=== PATIENT | male | born 1955 | race Hispanic/Latino ===

== ENCOUNTER 2019-04-15 23:31 | Observation (INO) | payer MEDICARE ==
--- NOTE | 2019-04-16 00:03 | Emergency Department Report ---
ED Neuro Deficit HPI - General Chief Complaint: Weakness Stated Complaint: POSS CVA Time Seen by Provider: 04/15/19 23:32 - History of Present Illness Initial Comments: [facility] Date of Service: 04/15/2019 23:28:07 Impression: Dysarthria, L side numbness Comments: 64 yo with subjective L side numbness/weakness with no deficits on exam other than a mild dysarthria. NIHSS 1. Based on an estimated onset per patient of 1900, he presents outside tPA treatment window, so no tPA. No LVO symptoms to suggest a need for FELICIA work-up. Admission to determine if new ischemic event v reactivation of previous stroke symptoms. Metrics: Last Known Well: 04/15/2019 19:00:00 [facility] Notification Time: 04/15/2019 23:27:40 Arrival Time: 04/15/2019 23:31:00 Stamp Time: 04/15/2019 23:28:07 Time First Login Attempt: 04/15/2019 23:30:27 Video Start Time: 04/15/2019 23:30:27 Symptoms: L side symptoms NIHSS Start Assessment Time: 04/15/2019 23:50:56 Patient is not a candidate for tPA. Patient was not deemed candidate for tPA thrombolytics because of Last Well Known Above 4.5 Hours. Video End Time: 04/15/2019 23:56:01 CT head showed no acute hemorrhage or acute core infarct. CT head was reviewed. Advanced imaging was not obtained as the presentation was not suggestive of Large Vessel Occlusive Disease. Radiologist was not called back for review of advanced imaging because n/a ER Physician notified of the decision on thrombolytics management on 04/15/2019 23:58:28 Our recommendations are outlined below. Recommendations: Activate Stroke Protocol Admission/Order Set Stroke/Telemetry Floor Neuro Checks Bedside Swallow Eval DVT Prophylaxis IV Fluids, Normal Saline Head of Bed Below 30 Degrees Euglycemia and Avoid Hyperthermia (PRN Acetaminophen) Initiate Aspirin 325 MG Daily Recommended Scan: MRI Head Without Contrast Lipid Panel to Be Obtained, if Not Done in the Last Three Months Therapies: Physical Therapy, Occupational Therapy, Speech Therapy Assessment When Applicable Dysphaghia Screen: Swallow Evaluation, Bedside DVT prophylaxis: Choice of Primary Team Disposition: Sign Out Sign Out: Discussed with Emergency Department Provider History of Present Illness: Patient is a 64 year old Male. Patient was brought by EMS for symptoms of L side symptoms 64 yo who is a limited historian, with past history of stroke and residual mild L side symptoms. He states sometime this evening, L side felt 'full', different than baseline. When asked about timing, he is uncertain but possibly noted at 1900. When asked about use of blood thinners, he states he takes some medications but is not sure what they are. EMS called and to ER for further evaluation. CT head showed no acute hemorrhage or acute core infarct. CT head was reviewed. Examination: 1A: Level of Consciousness - Alert; keenly responsive + 0 1B: Ask Month and Age - Both Questions Right + 0 1C: Blink Eyes & Squeeze Hands - Performs Both Tasks + 0 2: Test Horizontal Extraocular Movements - Normal + 0 3: Test Visual Short - No Visual Loss + 0 4: Test Facial Palsy (Use Grimace if Obtunded) - Normal symmetry + 0 5A: Test Left Arm Motor Drift - No Drift for 10 Seconds + 0 5B: Test Right Arm Motor Drift - No Drift for 10 Seconds + 0 6A: Test Left Leg Motor Drift - No Drift for 5 Seconds + 0 6B: Test Right Leg Motor Drift - No Drift for 5 Seconds + 0 7: Test Limb Ataxia (FNF/Heel-Marques) - No Ataxia + 0 8: Test Sensation - Normal; No sensory loss + 0 9: Test Language/Aphasia - Normal; No aphasia + 0 10: Test Dysarthria - Mild-Moderate Dysarthria: Slurring but can be understood + 1 11: Test Extinction/Inattention - No abnormality + 0 NIHSS Score: 1 Patient was informed the Neurology Consult would happen via TeleHealth consult by way of interactive audio and video telecommunications and consented to receiving care in this manner. Due to the immediate potential for life-threatening deterioration due to underlying acute neurologic illness, I spent 35 minutes providing critical care. This time includes time for face to face visit via telemedicine, review of medical records, imaging studies and discussion of findings with providers, the patient and/or family. Dr Yayo Montero [facility] - Related Data Home Medications: Home Medications Medication Instructions Recorded Confirmed Last Taken Acetaminophen 500 mg PO QID 05/12/15 05/12/15 Unknown Aspirin 325 mg PO DAILY 05/12/15 05/12/15 Unknown Bactrim DS TAB 1 tab PO 3XW 05/12/15 05/12/15 Unknown Gabapentin 100 mg PO BID 05/12/15 05/12/15 Unknown Lisinopril 40 mg PO DAILY 05/12/15 05/12/15 Unknown glipiZIDE 10 mg PO BID 05/12/15 05/12/15 Unknown traZODone 50 mg PO HS 05/12/15 05/12/15 Unknown Allergies/Adverse Reactions: Allergies Allergy/AdvReac Type Severity Reaction Status Date / Time No Known Allergies Allergy Unverified 05/12/15 11:21 ED Review of Systems ROS: Stated complaint: POSS CVA Other details as noted in HPI ED Past Medical Hx - Past Medical History Hx Hypertension: Yes Hx Diabetes: Yes Hx HIV: Yes Additional medical history: neuropathy - Social History Smoking Status: Never Smoker Substance Use Type: None - Medications Home Medications: Home Medications Medication Instructions Recorded Confirmed Last Taken Type Acetaminophen 500 mg PO QID 05/12/15 05/12/15 Unknown History Aspirin 325 mg PO DAILY 05/12/15 05/12/15 Unknown History Bactrim DS TAB 1 tab PO 3XW 05/12/15 05/12/15 Unknown History Gabapentin 100 mg PO BID 05/12/15 05/12/15 Unknown History Lisinopril 40 mg PO DAILY 05/12/15 05/12/15 Unknown History glipiZIDE 10 mg PO BID 05/12/15 05/12/15 Unknown History traZODone 50 mg PO HS 05/12/15 05/12/15 Unknown History ED Neuro Physical Exam - General Limitations: No Limitations Suspected Stroke: Yes - NIHSS Assessment Interval: Baseline 1a. Level of Consciousness: alert/keenly responsive 1b. LOC Questions: answers both correctly 1c. LOC Commands: performs tasks correctly 2. Best Gaze: normal 3. Visual: no visual loss 4. Facial Palsy: normal symmetrical movement 5b. Motor Arm Right: no drift 5a. Motor Arm Left: no drift 6a. Motor Leg Left: no drift 6b. Motor Leg Right: no drift 7. Limb Ataxia: absent 8. Sensory: normal 9. Best Language: no aphasia 10. Dysarthria: mild/moderate dysarthria 11. Extinction/Inattention: no abnormality Total Score: 1 Stroke Severity: Minor Stroke Critical care attestation.: If time is entered above; I have spent that time in minutes in the direct care of this critically ill patient, excluding procedure time. ED Disposition Clinical Impression: Dysarthria Disposition: OP ADMIT IP TO THIS HOSP Is pt being admited?: Yes Does the pt Need Aspirin: Yes Condition: Stable
--- NOTE | 2019-04-16 00:08 | Emergency Department Report ---
HPI - General Time Seen by Provider: 04/15/19 23:32 - HPI HPI: 64-year-old male presents to the emergency department via EMS from what appears to be a care home house with complaint of possible stroke. A code stroke was initiated. The patient apparently became weak and fell down about one hour prior to presentation. While he is a poor historian, he complains of some increased weakness to his left side, and a feeling of fullness or heaviness to the left side of his face. The patient does have a history of CVA 2 with residual left-sided deficits. He also has a past medical history of diabetes, hypertension, HIV. He was not given anything for her symptoms prior to arrival. ED Past Medical Hx - Past Medical History Hx Hypertension: Yes Hx Diabetes: Yes Hx HIV: Yes Additional medical history: neuropathy - Social History Smoking Status: Never Smoker Substance Use Type: None - Medications Home Medications: Home Medications Medication Instructions Recorded Confirmed Last Taken Type glipiZIDE 10 mg PO BID 05/12/15 04/16/19 Unknown History Aspirin [Aspirin BABY CHEW TAB] 81 mg PO QDAY 04/16/19 04/16/19 Unknown History Dolutegravir [Tivicay] 50 mg PO DAILY 04/16/19 04/16/19 Unknown History Ergocalciferol [Vitamin D2] 1 cap PO QWEEK 04/16/19 04/16/19 04/15/19 History ED Review of Systems ROS: Stated complaint: POSS CVA Other details as noted in HPI Comment: All other systems reviewed and negative Constitutional: weakness. denies: fever Eyes: denies: eye pain, vision change Respiratory: denies: shortness of breath Cardiovascular: denies: chest pain Gastrointestinal: denies: abdominal pain, vomiting Musculoskeletal: denies: back pain Neurological: weakness. denies: headache Physical Exam - Physical Exam Physical Exam: GENERAL: The patient is well-developed well-nourished. HENT: Normocephalic. Atraumatic. Patient has moist mucous membranes. EYES: Extraocular motions are intact. Pupils equal reactive to light bilaterally. NECK: Supple. Trachea is midline. CHEST/LUNGS: Clear to auscultation. There is no respiratory distress noted. HEART/CARDIOVASCULAR: Regular. There is no tachycardia. There is no murmur. ABDOMEN: Abdomen is soft, nontender. Patient has normal bowel sounds. There is no abdominal distention. SKIN: Skin is warm and dry. NEURO: The patient is awake, alert and cooperative. The patient has no objective motor or sensory deficits. Mild dysarthria. CN II - XII grossly intact. MUSCULOSKELETAL: There is no tenderness or deformity. There is no limitation range of motion. There is no evidence of acute injury. ED Medical Decision Making - Lab Data Result diagrams: 04/16/19 00:00 04/16/19 00:00 - EKG Data -: EKG Interpreted by Me EKG shows normal: sinus rhythm, axis, intervals, QRS complexes, ST-T waves Rate: normal - EKG Data When compared to previous EKG there are: previous EKG unavailable Interpretation: normal EKG - Medical Decision Making This patient presented as a code stroke secondary to some subjective left-sided weakness and numbness. The patient was seen by the telemedicine neurologist immediately after completing his CT scan of the head. CT scan of the head did not show any bleed, shift, mass, acute ischemia. The patient was found to have a NIH stroke scale of 1 secondary to the dysarthria. There was no obvious last known well time and the patient does not appear to be a TPA candidate. It also does not appear to be a large vessel occlusion and therefore CT angiography was not recommended. However neurology recommends admission and MRI and further stroke workup. The patient was given aspirin. He will be admitted to [facility] for further evaluation and treatment and was accepted for admission by the hospitalist Dr Staples. - Differential Diagnosis CVA, TIA, Hypoglycemia, Dysarthria. Critical Care Time: No Critical care attestation.: If time is entered above; I have spent that time in minutes in the direct care of this critically ill patient, excluding procedure time. ED Disposition Clinical Impression: Dysarthria, Stroke-like symptoms Hypertension Qualifiers: Hypertension type: essential hypertension Qualified Code(s): I10 - Essential (primary) hypertension Disposition: OP ADMIT IP TO THIS [facility] Is pt being admited?: Yes Condition: Fair Time of Disposition: 05:02
--- NOTE | 2019-04-16 00:15 | Cat Scan Report ---
CT head/brain wo con INDICATION / CLINICAL INFORMATION: Stroke symptoms. History of multiple prior CVAs TECHNIQUE: Axial CT imaging of brain was obtained without contrast. Coronal and sagittal reformatted imaging obt ained and reviewed. All CT scans at this location are performed using CT dose reduction for ALARA by means of automated exposure control. COMPARISON: None available. FINDINGS: No evidence for intracranial hemorrhage, mass, or midline shift. No extra-axial fluid collection. The re are multiple areas of encephalomalacia in the left frontal lobe, left parietal lobe, right parieta l lobe all with appearance suggestive for old CVAs. No suggestion for acute territorial infarct at th is time. Several small lacunar infarcts are seen throughout the left basal ganglia. It would be diffi cult to entirely exclude acute CVA given the presence of multiple old CVAs and microangiopathy withou t MRI. Ventricular system and basilar cisterns are grossly unremarkable. Moderate cerebral atrophy noted. Visualized paranasal sinuses are grossly well aerated and clear. No calvarial abnormality. IMPRESSION: 1. No CT evidence for acute CVA at this time. Please note that negative head CT does not exclude the possibility of acute CVA and clinical correlation is recommended as to whether further imaging with M RI should be performed. 2. Evidence for multiple prior CVAs. 3. A negative CT report was called to Dr. Landry for code stroke protocol COMMUNICATION: Time of Communication: 2302 hours [place] [employer] [employer] Licensed Practitioner Receiving Report: Dr. Landry Signer Name: Jennifer Estrada MD Signed: 04/16/2019 12:10 AM Workstation Name: [id number]
[2019-04-16 00:25] LABS: Basophils % (Auto) 0.3 % (0.0-1.8); Eosinophils # (Auto) 0.1 K/mm3 (0.0-0.4); Eosinophils % (Auto) 0.4 % (0.0-4.3); Hematocrit 40.3 % (35.5-45.6); Hemoglobin 13.9 gm/dl (11.8-15.2); Lymphocytes # (Auto) 0.8 K/mm3 (1.2-5.4); Lymphocytes % (Auto) 5.1 % (13.4-35.0); Mean Corpuscular HGB Conc 35 % (32-34); Mean Corpuscular Volume 88 fl (84-94); Monocytes # (Auto) 0.8 K/mm3 (0.0-0.8); Monocytes % (Auto) 4.9 % (0.0-7.3); Platelet Count 359 K/mm3 (140-440); Red Blood Count 4.57 M/mm3 (3.65-5.03); Red Cell Distribution Width 13.7 % (13.2-15.2)
[2019-04-16 00:35] LABS: INR 0.89 (0.87-1.13)
[2019-04-16 00:36] LABS: Partial Thromboplastin Time 25.1 Sec. (24.2-36.6)
[2019-04-16 00:55] LABS: Albumin 3.4 g/dL (3.9-5); Calcium 8.6 mg/dL (8.4-10.2)
[2019-04-16] MEDS ORDERED: ASPIRIN 81 MG TAB CHEW PO ONE (01:44)
[2019-04-16] MEDS ORDERED: PROMETHAZINE 25 MG RECT SUPP PR PRN (03:34)
[2019-04-16] MEDS ORDERED: ACETAMINOPHEN 325 MG TAB PO PRN ×2 (03:34)
[2019-04-16] MEDS ORDERED: MORPHINE 2 MG/1 ML INJ IV PRN (03:34)
[2019-04-16] MEDS ORDERED: MAGNESIUM HYDROXIDE (MOM) ORAL LIQD UDC PO PRN (03:34)
[2019-04-16] MEDS ORDERED: METOCLOPRAMIDE 10 MG TAB PO PRN (03:34)
[2019-04-16] MEDS ORDERED: ONDANSETRON 4 MG/2 ML INJ IV PRN (03:34)
[2019-04-16] MEDS ORDERED: ASPIRIN 81 MG TAB CHEW ONE (03:48)
--- NOTE | 2019-04-16 05:20 | History and Physical Report ---
History of Present Illness Date of examination: 04/16/19 Date of admission: 04/16/19 01:43 Chief complaint: Left-sided weakness Fall History of present illness: Patient is a 64-year old male who presents to the emergency room today with day sudden onset of left left-sided weakness and a fall. Denies any chest pain or shortness of breath. No nausea vomiting. He was evaluated in the emergency room for possible stroke but symptoms subsided upon arrival in the emergency room. Was also found not to be a TPA candidate. His work-up in the emergency room was unremarkable. Initially had some difficulty with his speech which has since resolved. Past History Past Medical History: hypertension Past Surgical History: No surgical history Social history: no significant social history Family history: no significant family history Medications and Allergies Allergies Allergy/AdvReac Type Severity Reaction Status Date / Time No Known Allergies Allergy Verified 04/16/19 00:24 Home Medications Medication Instructions Recorded Confirmed Last Taken Type glipiZIDE 10 mg PO BID 05/12/15 04/16/19 Unknown History Aspirin [Aspirin BABY CHEW TAB] 81 mg PO QDAY 04/16/19 04/16/19 Unknown History Dolutegravir [Tivicay] 50 mg PO DAILY 04/16/19 04/16/19 Unknown History Ergocalciferol [Vitamin D2] 1 cap PO QWEEK 04/16/19 04/16/19 04/15/19 History Active Meds: Active Medications Acetaminophen (Tylenol) 650 mg PO Q4H PRN PRN Reason: Pain, Mild (1-3) Aspirin (Aspirin) 325 mg PO QDAY HUSAM Bisacodyl (Dulcolax) 10 mg MD QDAY PRN PRN Reason: Constipation Magnesium Hydroxide (Milk Of Magnesia) 30 ml PO Q4H PRN PRN Reason: Constipation Metoclopramide HCl (Reglan) 5 mg PO Q6H PRN PRN Reason: Nausea And Vomiting Morphine Sulfate (Morphine) 2 mg IV Q4H PRN PRN Reason: Pain, Moderate (4-6) Ondansetron HCl (Zofran) 4 mg IV Q8H PRN PRN Reason: Nausea And Vomiting Promethazine HCl (Phenergan) 25 mg MD Q6H PRN PRN Reason: Nausea And Vomiting Sodium Chloride (Sodium Chloride Flush Syringe 10 Ml) 10 ml IV BID HUSAM Sodium Chloride (Sodium Chloride Flush Syringe 10 Ml) 10 ml IV PRN PRN PRN Reason: LINE FLUSH Review of Systems Neurological: weakness Exam - Constitutional Vitals: Temp Pulse Resp BP Pulse Ox 97.9 F 78 18 181/90 97 04/16/19 04:27 04/16/19 04:27 04/16/19 04:27 04/16/19 04:27 04/16/19 04:27 General appearance: Present: no acute distress, well-nourished - EENT Eyes: Present: PERRL, EOM intact ENT: hearing intact, clear oral mucosa, dentition normal - Neck Neck: Present: supple, normal ROM - Respiratory Respiratory effort: normal Respiratory: bilateral: CTA - Cardiovascular Rhythm: regular Heart Sounds: Present: S1 & S2 - Extremities Extremities: no ischemia, No edema Peripheral Pulses: within normal limits - Abdominal General gastrointestinal: Present: soft, non-tender, non-distended Male genitourinary: Present: normal - Integumentary Integumentary: Present: clear, warm, dry - Musculoskeletal Musculoskeletal: strength equal bilaterally - Psychiatric Psychiatric: appropriate mood/affect, cooperative - Neurologic Neurologic: CNII-XII intact Results - Labs CBC & Chem 7: 04/16/19 00:00 04/16/19 00:00 Labs: Abnormal lab results 04/16/19 04/16/19 04/16/19 Range/Units 00:00 00:00 00:00 WBC 15.8 H (4.5-11.0) K/mm3 MCHC 35 H (32-34) % Lymph % (Auto) 5.1 L (13.4-35.0) % Lymph # 0.8 L (1.2-5.4) K/mm3 Seg Neutrophils % 89.3 H (40.0-70.0) % Seg Neutrophils # 14.1 H (1.8-7.7) K/mm3 PT 12.0 L (12.2-14.9) Sec. BUN 29 H (9-20) mg/dL Creatinine 2.1 H (0.8-1.5) mg/dL AST 81 H (5-40) units/L ALT 118 H (7-56) units/L Alkaline Phosphatase 159 H (35-129) units/L Albumin 3.4 L (3.9-5) g/dL Assessment and Plan - Patient Problems (1) Dysarthria Current Visit: Yes Status: Acute Plan to address problem: Patient will be ruled out for CVA. Will request speech therapy evaluation and recommendation. (2) Hypertension Current Visit: Yes Status: Acute Qualifiers: Hypertension type: essential hypertension Qualified Code(s): I10 - Essential (primary) hypertension Plan to address problem: Continue patient's routine home medications and monitor vital signs closely. (3) Fall Current Visit: Yes Status: Acute Plan to address problem: Will place on fall precautions to monitor closely. (4) DVT prophylaxis Current Visit: Yes Status: Acute Plan to address problem: Patient placed on subcutaneous heparin. (5) Full code status Current Visit: Yes Status: Acute
[2019-04-16] MEDS ORDERED: ASPIRIN 325 MG TAB PO SCH (10:00)
--- NOTE | 2019-04-16 10:52 | Magnetic Resonance Report ---
MR brain wo con INDICATION / CLINICAL INFORMATION: 64 years Male; stroke. Left-sided weakness TECHNIQUE: Multiplanar, multisequence MR images of the brain were obtained. Motion artifact COMPARISON: CT - 04/15/2019 FINDINGS: BRAIN / INTRACRANIAL CONTENTS: Old, small branch PICA infarcts seen on the left. Multiple lacunar infarcts seen in the gangliocapsular and thalamic regions. Mild to moderate cerebral and cerebellar atrophy. Old, small branch infarcts seen peripherally in the superior frontal gyral regions and left superior parietal lobule. There are moderate areas of increased signal intensity on FLAIR imaging in the white matter of the ce rebral hemispheres, as well as the gangliocapsular regions. These are nonspecific findings and may be related to microangiopathy (hypertension, diabetes, atherosclerosis), given the patient's age. Mild pontine disease noted. Otherwise, no acute ischemia, acute hemorrhage, or hydrocephalus. CRANIOCERVICAL JUNCTION: No significant abnormality. VASCULAR FLOW-VOIDS: No significant abnormality. ORBITS: No significant abnormality of visualized orbits. SINUSES / MASTOIDS: Mild to moderate mucosal thickening seen in the mastoids on the left. Minimal not ed on the right. There is also mild mucosal thickening in the ethmoids. Frontal sinuses are underdeve loped. ADDITIONAL FINDINGS: None. IMPRESSION: 1. No focal mass, hemorrhage, hydrocephalus, or acute ischemia. Signer Name: Oliver Patterson MD, III Signed: 04/16/2019 10:47 AM Workstation Name: [id number]
--- NOTE | 2019-04-16 12:02 | Vascular Lab Report ---
BILATERAL CAROTID DOPPLER ULTRASOUND INDICATION : CVA TECHNIQUE: Grayscale and color Doppler imaging performed through the neck. COMPARISON: None FINDINGS: Right: There is no significant atherosclerotic disease. Peak systolic velocity in the CCA is 100 cm /s with end-diastolic velocity of 20 cm/s. Peak systolic velocity in the proximal ICA is 94 cm/s with end-diastolic velocity of 26 cm/s. ICA to CCA ratio is less than 2. There is antegrade flow in the ECA and the vertebral artery. Left: There is no significant atherosclerotic disease. Peak systolic velocity in the CCA is 93 cm/s w ith end-diastolic velocity of 21 cm/s. Peak systolic velocity in the proximal ICA is 80 cm/s with end -diastolic velocity of 15 cm/s. ICA to CCA ratio is less than 2. There is antegrade flow in the ECA and the vertebral artery. IMPRESSION: No hemodynamically significant stenosis by NASCET criteria. Doppler velocities indicate l ess than 50% luminal narrowing in both carotid systems. Signer Name: Vinay Beard Jr, MD Signed: 04/16/2019 11:58 AM Workstation Name: [id number]
--- NOTE | 2019-04-16 12:33 | Consultation ---
Past History Past Medical History: hypertension Past Surgical History: No surgical history Social history: no significant social history Family history: no significant family history Medications and Allergies Allergies Allergy/AdvReac Type Severity Reaction Status Date / Time No Known Allergies Allergy Verified 04/16/19 00:24 Home Medications Medication Instructions Recorded Confirmed Last Taken Type glipiZIDE 10 mg PO BID 05/12/15 04/16/19 Unknown History Aspirin [Aspirin BABY CHEW TAB] 81 mg PO QDAY 04/16/19 04/16/19 Unknown History Dolutegravir [Tivicay] 50 mg PO DAILY 04/16/19 04/16/19 Unknown History Ergocalciferol [Vitamin D2] 1 cap PO QWEEK 04/16/19 04/16/19 04/15/19 History Active Meds: Active Medications Acetaminophen (Tylenol) 650 mg PO Q4H PRN PRN Reason: Pain, Mild (1-3) Aspirin (Aspirin) 325 mg PO QDAY [facility] Last Admin: 04/16/19 11:17 Dose: 325 mg Documented by: Atorvastatin Calcium (Lipitor) 40 mg PO QHS HUSAM Bisacodyl (Dulcolax) 10 mg [place] QDAY PRN PRN Reason: Constipation Magnesium Hydroxide (Milk Of Magnesia) 30 ml PO Q4H PRN PRN Reason: Constipation Metoclopramide HCl (Reglan) 5 mg PO Q6H PRN PRN Reason: Nausea And Vomiting Morphine Sulfate (Morphine) 2 mg IV Q4H PRN PRN Reason: Pain, Moderate (4-6) Ondansetron HCl (Zofran) 4 mg IV Q8H PRN PRN Reason: Nausea And Vomiting Promethazine HCl (Phenergan) 25 mg [place] Q6H PRN PRN Reason: Nausea And Vomiting Sodium Chloride (Sodium Chloride Flush Syringe 10 Ml) 10 ml IV BID [facility] Last Admin: 04/16/19 11:18 Dose: 10 ml Documented by: Sodium Chloride (Sodium Chloride Flush Syringe 10 Ml) 10 ml IV PRN PRN PRN Reason: LINE FLUSH Physical Examination - Vital Signs Vital Signs: Vital Signs Pulse Resp BP Pulse Ox 77 14 167/70 98 04/16/19 00:06 04/16/19 00:06 04/16/19 00:06 04/16/19 00:06 Results - Laboratory Findings CBC and BMP: 04/16/19 00:00 04/16/19 00:00 Abnormal Lab Findings: Abnormal Labs 04/16/19 04/16/19 04/16/19 00:00 00:00 00:00 WBC 15.8 H MCHC 35 H Lymph % (Auto) 5.1 L Lymph # 0.8 L Seg Neutrophils % 89.3 H Seg Neutrophils # 14.1 H PT 12.0 L BUN 29 H Creatinine 2.1 H AST 81 H ALT 118 H Alkaline Phosphatase 159 H Albumin 3.4 L Assessment and Plan 64 YEAR OLD MALE WITH HISTORY OF HYPERTENSION,DIABETES,AND MULTIPLE, AND MULTIPLE PRIOR STROKES INVOLVING LEFT FRONTAL,LEFT PARIETAL,LEFT BASAL GANGLIA,RIGHT PARIETAL AND SMALL BRANCH PICA INFARCT WHO DEVELOPED AN EPISODE OF INCREASED WEAKNESS ON THE LEFT SIDE ON . PATIENT STATED THAT HE ALSO FELT HEAVY ON THE LEFT SIDE OF HIS FACE. PATIENT WAS LYING ON THE BED WHEN IT HAPPENED AND HE ROLLED TO THE RIGHT SIDE OF THE BED AND CAME DOWN ON THE FLOOR AND LIED DOWN UNTIL EMS CAME. BY THE TIME HE WAS BROUGHT TO THE HOSPITAL HIS SYMPTOMS RESOLVED. PATIENT IS ON ASPIRIN AND STATIN WHICH HE HAS BEEN TAKING REGULARLY. HE LIVES IN A PERSONAL ASSISTANCE HOME AND HE IS FEELS POSITIVE THAT HE WAS GETTING THE RECOMMENDED MEDICATIONS. MRI DONE AFTER ADMISSION SHOWED ALL OLD INFARCTS ,HOWEVER NO NEW INFARCTS. PHYSICAL EXAMINATION. PATIENT IS ALERT AND APPROPRIATE. HAS INSIGHT INTO HIS PROBLEM AND ANSWERS QUESTIONS APPROPRIATELY. HEART- NORMAL RATE AND RHYTHM. CAROTIDS-BOTH PALPABLE CRANIAL NERVES- ALL WITH IN NORMAL LIMIT. PUPILS REACT TO LIGHT.EOMI,NO FACIAL SYMMETRY OR WEAKNESS, OTHER CRANIAL NERVES ARE WITH IN NORMAL LIMIT. MOTOR- WEAK BOTH RT AND LEFT UPPER AND LOWER EXTREMITIES,LEFT MORE THAN THE RIGHT(patient had his most recent stroke involving the left side) COORDINATION- FINGER TO NOSE NORMAL. REFLEXES- INCREASED ON THE RIGHT SIDE MORE SO THAN THE LEFT WITH UP GOING TOE ON THE RIGHT SIDE. SENSORY- GROSSLY WITH INNORMAL LIMIT. IMPRESSION. 1. PATIENT SEEMED HAVE TIA INVOLVING RIGHT HEMISPHERE IN BACK GROUND OF MULTIPLE INFARCTS INVOLVING THE DISTRIBUTION OF BOTH ANTERIOR AND CIRCULATION INDICATING HEART BEING THE SOURCE. HE IS AN ASPIRIN FAILURE. RECOMMEND. 1. HE IS ASPIRIN FAILURE AND HEART SEEMS TO BE THE SOURCE OF MULTIPLE INFARCT, RECOMMEND HE SHOULD BE ON COUMADIN OR APIXABAN 5 MG PO BID. 2, PLEASE CHECK LIPID PROFILE,T4,TSH AND ADJUST THE DOSE OF STATIN BASED ON THE RESULT OF HDL AND LDL,TRIGLYCERIDE. 3. 2D ECHO 4. CTA OF HEAD AND NECK. 5. TODAY IS MY LAST DAY, PLEASE CONSULT THE INCOMING NEUROLOGIST WITH TEST RESULT AND FURTHER RECOMMENDATION
--- NOTE | 2019-04-16 14:44 | Event Note ---
Date: 04/16/19 Patient seen and evaluated, clinically stable at this time. Neurology recommends eliquis or coumadin but for complaince choose eliquis. This has been started and discussed with the Patient, anticipate discharge in am if work up remains negative.
--- NOTE | 2019-04-16 15:45 | Consultation ---
History of Present Illness - History of Present Illness 64-year-old disheveled morbidly obese male with past medical history significant for hypertension, diabetes, and previous TIAs in the past who presented to emergency department with sudden onset of left-sided weakness. Nephrology consult this time secondary to acute kidney injury noted on initial laboratory studies. Patient denies any previous history of renal disease. He is being followed by general care for his primary care needs. He states that he has had history of hypertension diabetes extensive for at least 20 years. He claims to be compliant with medications. Denies any history of heart disease. Denies any history of significant chronic NSAID use. Denies any history of kidney stones. Past History Past Medical History: diabetes, hypertension Past Surgical History: No surgical history Social history: no significant social history Family history: no significant family history Medications and Allergies Allergies Allergy/AdvReac Type Severity Reaction Status Date / Time No Known Allergies Allergy Verified 04/16/19 00:24 Home Medications Medication Instructions Recorded Confirmed Last Taken Type glipiZIDE 10 mg PO BID 05/12/15 04/16/19 Unknown History Aspirin [Aspirin BABY CHEW TAB] 81 mg PO QDAY 04/16/19 04/16/19 Unknown History Dolutegravir [Tivicay] 50 mg PO DAILY 04/16/19 04/16/19 Unknown History Ergocalciferol [Vitamin D2] 1 cap PO QWEEK 04/16/19 04/16/19 04/15/19 History Active Meds: Active Medications Acetaminophen (Tylenol) 650 mg PO Q4H PRN PRN Reason: Pain, Mild (1-3) Apixaban (Eliquis) 5 mg PO Q12HR HUSAM; Protocol Atorvastatin Calcium (Lipitor) 40 mg PO QHS HUSAM Bisacodyl (Dulcolax) 10 mg [place] QDAY PRN PRN Reason: Constipation Magnesium Hydroxide (Milk Of Magnesia) 30 ml PO Q4H PRN PRN Reason: Constipation Metoclopramide HCl (Reglan) 5 mg PO Q6H PRN PRN Reason: Nausea And Vomiting Morphine Sulfate (Morphine) 2 mg IV Q4H PRN PRN Reason: Pain, Moderate (4-6) Ondansetron HCl (Zofran) 4 mg IV Q8H PRN PRN Reason: Nausea And Vomiting Promethazine HCl (Phenergan) 25 mg [place] Q6H PRN PRN Reason: Nausea And Vomiting Sodium Chloride (Sodium Chloride Flush Syringe 10 Ml) 10 ml IV BID [facility] Last Admin: 04/16/19 11:18 Dose: 10 ml Documented by: Sodium Chloride (Sodium Chloride Flush Syringe 10 Ml) 10 ml IV PRN PRN PRN Reason: LINE FLUSH Review of Systems All systems: negative Constitutional: fatigue, weakness Exam - Vital Signs Vital signs: Vital Signs Pulse Resp BP Pulse Ox 77 14 167/70 98 04/16/19 00:06 04/16/19 00:06 04/16/19 00:06 04/16/19 00:06 - General Appearance General appearance: well-developed, well-nourished, appears stated age, obese EENT: ATNC, PERRL Neck: Present: neck supple, trachea midline Respiratory: Clear to Ascultation, Normal Exam Heart: regular, normal heart rate, S1S2, no murmurs Gastrointestinal: Present: normal, normoactive bowel sounds Integumentary: no rash, warm and dry Neurologic: alert and oriented x3 Musculoskeletal: Present: deferred Psychiatric: mood/affect appropriate, cooperative Results - Lab Results 04/16/19 00:00 04/16/19 00:00 Most recent lab results Calcium 8.6 mg/dL (8.4-10.2) 04/16/19 00:00 - Image Kidney/bladder ultrasound: pending Assessment and Plan - Patient Problems (1) Acute kidney injury Current Visit: Yes Status: Acute Plan to address problem: Acute kidney injury unlikely underlying chronic kidney disease based on his multiple risk factors, in the setting of possibly prerenal injury. We'll obtain a renal ultrasound as well as a urine analysis and urine looked less for further evaluation. Please avoid all nephrotoxins, maintain map above 65 mmHg. (2) Transient ischemic attack (TIA) Current Visit: Yes Status: Acute Plan to address problem: Management per primary attending in neurology. MRI of the brain as well as CT scan was reviewed by neurology with evaluation noted in chart. Echocardiogram was also done without any acute abnormalities. Pending MRA studies at this time. (3) Hypertensive chronic kidney disease with stage 1 through stage 4 chronic kidney disease, or unspecified chronic kidney disease Current Visit: Yes Status: Chronic Plan to address problem: Would favor to restart his home medications and continue to monitor carefully. (4) Type 2 diabetes mellitus with diabetic chronic kidney disease Current Visit: Yes Status: Chronic Qualifiers: Chronic kidney disease stage: stage 3 (moderate) Plan to address problem: Diabetes management per primary attending.
[2019-04-16] MEDS: APIXABAN 5 MG TAB PO SCH (21:58)
--- NOTE | 2019-04-17 06:21 | Ultrasound Report ---
Bilateral renal ultrasound. 04/17/2019. HISTORY: Acute renal insufficiency. FINDINGS: Right kidney measures 11.3 x 5.3 cm. Cortex measures 1.5 cm. Left kidney measures 10.5 x 6.1 cm. Cortex measures 1.3 cm. Echogenicity is normal. Negative for mass or obstruction. The bladder contains moderate urine. IMPRESSION: Negative renal ultrasound. Signer Name: Abdoul Duncan MD Signed: 04/17/2019 6:17 AM Workstation Name: [id number]
[2019-04-17] MEDS ORDERED: DEXTROSE 50% IN WATER (25GM) 50 ML SYRINGE IV ONE (06:29)
[2019-04-17 08:20] VITALS: BP 188/101
[2019-04-17 08:20] LABS: Basophils # (Auto) 0.1 K/mm3 (0.0-0.1); Eosinophils # (Auto) 0.2 K/mm3 (0.0-0.4); Eosinophils % (Auto) 2.4 % (0.0-4.3); Hematocrit 38.2 % (35.5-45.6); Hemoglobin 13.2 gm/dl (11.8-15.2); Lymphocytes # (Auto) 1.4 K/mm3 (1.2-5.4); Lymphocytes % (Auto) 21.5 % (13.4-35.0); Mean Corpuscular HGB Conc 35 % (32-34); Mean Corpuscular Volume 89 fl (84-94); Monocytes # (Auto) 0.5 K/mm3 (0.0-0.8); Monocytes % (Auto) 7.1 % (0.0-7.3); Platelet Count 328 K/mm3 (140-440); Red Blood Count 4.31 M/mm3 (3.65-5.03); Red Cell Distribution Width 13.7 % (13.2-15.2)
[2019-04-17 08:23] LABS: INR 1.09 (0.87-1.13); Partial Thromboplastin Time 26.2 Sec. (24.2-36.6)
[2019-04-17 08:31] LABS: Albumin 3.1 g/dL (3.9-5); Calcium 8.3 mg/dL (8.4-10.2); Chol/HDL Ratio 5.96 %
[2019-04-17] MEDS: APIXABAN 5 MG TAB PO SCH (09:35)
--- NOTE | 2019-04-17 10:43 | Progress Note ---
Assessment and Plan - Patient Problems (1) Acute kidney injury Current Visit: Yes Status: Acute Plan to address problem: Acute kidney injury unlikely underlying chronic kidney disease based on his multiple risk factors, in the setting of possibly prerenal injury. renal ultrasound unremarkable. urine studies pending. avoid all nephrotoxins, maintain map above 65 mmHg. (2) Transient ischemic attack (TIA) Current Visit: Yes Status: Acute Plan to address problem: Management per primary attending in neurology. MRI of the brain as well as CT scan was reviewed by neurology with evaluation noted in chart. Echocardiogram was also done without any acute abnormalities. Pending MRA studies at this time. (3) Hypertensive chronic kidney disease with stage 1 through stage 4 chronic kidney disease, or unspecified chronic kidney disease Current Visit: Yes Status: Chronic Plan to address problem: restart his home medications and continue to monitor carefully. (4) Type 2 diabetes mellitus with diabetic chronic kidney disease Current Visit: Yes Status: Chronic Qualifiers: Chronic kidney disease stage: stage 3 (moderate) Plan to address problem: Diabetes management per primary attending. Subjective Date of service: 04/17/19 Principal diagnosis: KAUSHAL Interval history: Pt awake, in no acute distress Objective - Vital Signs Vital signs: Vital Signs - 12hr 04/17/19 04/17/19 04/17/19 00:57 04:08 08:18 Temperature 97.8 F 97.5 F L 98.2 F Pulse Rate 69 70 74 Respiratory 16 12 18 Rate Blood Pressure 144/70 181/99 188/101 O2 Sat by Pulse 95 95 95 Oximetry - General Appearance General appearance: well-developed, well-nourished, appears stated age EENT: ATNC, PERRL, mucous membranes dry Neck: no JVD Respiratory: Present: Clear to Ascultation Cardiology: regular, S1S2 Gastrointestinal: normoactive bowel sounds Integumentary: no rash, other Neurologic: no focal deficit, alert and oriented x3, strength 5/5, CN 3-12 intact Psychiatric: mood/affect appropriate, cooperative - Lab 04/17/19 07:45 04/17/19 07:45 Most recent lab results Calcium 8.3 mg/dL (8.4-10.2) L 04/17/19 07:45 Medications & Allergies - Medications Allergies/Adverse Reactions: Allergies No Known Allergies Allergy (Verified 04/16/19 00:24) Home Medications: Home Medications Medication Instructions Recorded Confirmed Last Taken Type glipiZIDE 10 mg PO BID 05/12/15 04/16/19 Unknown History Aspirin [Aspirin BABY CHEW TAB] 81 mg PO QDAY 04/16/19 04/16/19 Unknown History Dolutegravir [Tivicay] 50 mg PO DAILY 04/16/19 04/16/19 Unknown History Ergocalciferol [Vitamin D2] 1 cap PO QWEEK 04/16/19 04/16/19 04/15/19 History Active Medications: Generic Name Dose Route Start Last Admin Trade Name Freq PRN Reason Stop Dose Admin Acetaminophen 650 mg 04/16/19 03:34 Tylenol PO Q4H PRN Pain, Mild (1-3) Apixaban 5 mg 04/16/19 22:00 04/17/19 09:35 Eliquis PO 5 mg Q12HR HUSAM Administration Protocol Atorvastatin Calcium 40 mg 04/16/19 22:00 04/16/19 21:58 Lipitor PO 40 mg QHS HUSAM Administration Bisacodyl 10 mg 04/16/19 03:34 Dulcolax [place] QDAY PRN Constipation Magnesium Hydroxide 30 ml 04/16/19 03:34 Milk Of Magnesia PO Q4H PRN Constipation Metoclopramide HCl 5 mg 04/16/19 03:34 Reglan PO Q6H PRN Nausea And Vomiting Morphine Sulfate 2 mg 04/16/19 03:34 04/17/19 09:51 Morphine IV 2 mg Q4H PRN Administration Pain, Moderate (4-6) Ondansetron HCl 4 mg 04/16/19 03:34 Zofran IV Q8H PRN Nausea And Vomiting Promethazine HCl 25 mg 04/16/19 03:34 Phenergan [place] Q6H PRN Nausea And Vomiting Sodium Chloride 10 ml 04/16/19 10:00 04/17/19 09:35 Sodium Chloride Flush Syringe 10 Ml IV 10 ml BID HUSAM Administration Sodium Chloride 10 ml 04/16/19 03:34 Sodium Chloride Flush Syringe 10 Ml IV PRN PRN LINE FLUSH
--- NOTE | 2019-04-17 12:32 | Discharge Summary ---
Providers - Providers Date of Admission: 04/16/19 01:43 Date of discharge: 04/17/19 Attending physician: DAJA CHI 04/16/19 03:34 Consult to Physician [CONS] Routine Comment: Consulting Provider: NURY IBRARA Physician Instructions: Reason For Exam: r/o CVA 04/16/19 03:37 Consult to Case Management [CONS] Routine Services Needed at Discharge: Home Health Services Notified:: case management Consult to Dietitian/Nutrition [CONS] Routine Physician Instructions: Reason For Exam: Reason for Consult: Nutrition Recommendations Reason for Consult: Diet education Occupational Therapy Evaluate and Treat [CONS] Routine Comment: Reason For Exam: Neuro deficits Physical Therapy Evaluation and Treat [CONS] Routine Comment: Reason For Exam: Neuro deficits 04/16/19 08:49 Consult to Physician [CONS] Routine Comment: Consulting Provider: NABILA JACOBSEN Physician Instructions: Reason For Exam: KAUSHAL Primary care physician: [employer] Hospitalization Condition: Fair Pertinent studies: MRI of brain showed multiple small lacunar infarcts. Diffuse. Echocardiogram ejection fraction 55% Hospital course: Agent 64-year-old male presented with encephalopathy evaluated for CVA workup unremarkable. Patient is now ambulatory with walker. Patient lives in personal [facility] upon discharge today he walked with physical therapy. Patient stable to walk with walker and is at his baseline. She is stable for discharge. Patient was found with MRI and CT scan of head to show small multiple lacunar infarcts. Neurology evaluation was obtained. And was treated as failed aspirin. Patient therefore will be discharged home on Eliquis 5 mg twice a day. Patient stable to receive physical therapy at home. Disposition: TO HOME OR SELFCARE - Discharge Diagnoses (1) Acute kidney injury Status: Acute (2) Hypertension Status: Acute Qualifiers: Hypertension type: essential hypertension Qualified Code(s): I10 - Essential (primary) hypertension Comment: Patient will be placed on amlodipine and milligrams and metoprolol 25 mg for blood pressure control. (3) Stroke-like symptoms Status: Acute Comment: Symptoms consistent with old lacunar infarcts. Placed on Eliquis twice a day. Follow-up primary care physician in 5 days. (4) Transient ischemic attack (TIA) Status: Acute (5) Hypertensive chronic kidney disease with stage 1 through stage 4 chronic kidney disease, or unspecified chronic kidney disease Status: Chronic Comment: Stage I chronic kidney disease most likely secondary to hypertension. We'll avoid VETO inhibitor. Medications renally dosed. Low- sodium diet. (6) Type 2 diabetes mellitus with diabetic chronic kidney disease Status: Chronic Qualifiers: Chronic kidney disease stage: stage 3 (moderate) Comment: Patient blood sugar resume or hypoglycemic medication. Glipizide. Core Measure Documentation - Palliative Care Palliative Care/ Comfort Measures: Not Applicable - Core Measures Any of the following diagnoses?: none Exam - Constitutional Vitals: Temp Pulse Resp BP Pulse Ox 98.2 F 75 18 188/101 95 04/17/19 08:18 04/17/19 10:00 04/17/19 10:00 04/17/19 08:18 04/17/19 08:18 General appearance: Present: no acute distress, well-nourished - EENT Eyes: Present: PERRL ENT: hearing intact, clear oral mucosa - Neck Neck: Present: supple, normal ROM - Respiratory Respiratory effort: normal Respiratory: bilateral: CTA - Cardiovascular Heart Sounds: Present: S1 & S2. Absent: rub, click - Extremities Extremities: pulses symmetrical, No edema Extremity abnormal: other (generalized weakness lower extremities unchanged. She'll alert oriented 3 at baseline.) Peripheral Pulses: within normal limits - Abdominal General gastrointestinal: Present: soft, non-tender, non-distended, normal bowel sounds Male genitourinary: Present: normal - Integumentary Integumentary: Present: clear, warm, dry - Musculoskeletal Musculoskeletal: generalized weakness - Psychiatric Psychiatric: appropriate mood/affect, intact judgment & insight - Neurologic Neurologic: CNII-XII intact, moves all extremities Plan Activity: up only with assistance Weight Bearing Status: Partial Weight Bearing Diet: low salt, diabetic Follow up with: PRIMARY CARE, [Primary Care Provider] - 3-5 Days Prescriptions: Apixaban [Eliquis] 5 mg PO Q12HR #60 tablet
== END 2019-04-17 18:40 | disposition home or self-care (01) ==
LOC: ED 23:31 → 4A 04-16 01:43
PROVIDERS: ADMIT Internal Medicine Geriatric Medicine; ATTEND Internal Medicine
DX: N17.9 Acute kidney failure, unspecified (principal); R47.1 Dysarthria and anarthria; R29.90 Unspecified symptoms and signs involving the nervous system; I12.9 Hypertensive chronic kidney disease with stage 1 through stage 4 chronic kidney disease, or unspecified chronic kidney disease; N18.9 Chronic kidney disease, unspecified; E11.22 Type 2 diabetes mellitus with diabetic chronic kidney disease; G45.9 Transient cerebral ischemic attack, unspecified; Z79.82 Long term (current) use of aspirin
CPT/HCPCS: 36415; 70450; 70551; 76770; 80053; 80061; 84443; 84484; 85025; 85027; 85610; 85730; 93005; 93010; 93306; 93880; 96374; 97162; 97165; 99284; A9270; G0378; J2270; 80320; G0480